=== PATIENT | male | born 1970 | race Caucasian/White ===

== ENCOUNTER 2021-12-05 19:18 | Emergency (ER) | payer BC ==
[2021-12-05] MEDS ORDERED: Heparin Sodium 5,000 Units/ML Vial IVPUSH STA (19:47)
[2021-12-05] MEDS ORDERED: Heparin Sodium/D5W 25,000 UNITS/500 ML BAG IV SCH ×2 (20:00→23:45)
[2021-12-05] MEDS ORDERED: Sodium Chloride 0.9% 1,000 ML IV SCH (20:00)
[2021-12-05] MEDS ORDERED: Iopamidol 755 Mg/ML 100 ML Bottle IVPUSH ONE (20:03)
[2021-12-05] MEDS ORDERED: Sodium Chloride 0.9% 100 ML IV SCH (20:15)
[2021-12-05] MEDS ORDERED: Orphenadrine 100 MG Tab.ER PO STA (22:07)
[2021-12-05] MEDS ORDERED: Aspirin 81 MG Tab.Chew PO STA (23:41)
[2021-12-06] MEDS ORDERED: Losartan 50 MG Tab PO ONE (02:02)
[2021-12-06] MEDS ORDERED: Albuterol/Ipratropium 3.0-0.5 MG/3 ML Neb Soln NEB ONE (02:14)
[2021-12-06] MEDS ORDERED: Heparin Sodium 5,000 Units/ML Vial IVPUSH ONE (04:55)
[2021-12-06] MEDS ORDERED: Heparin Sodium 5,000 Units/ML Vial IV ONE (05:30)
== END 2021-12-06 06:44 ==
LOC: JD.ED 19:18
DX: I21.4 Non-ST elevation (NSTEMI) myocardial infarction (principal); F17.210 Nicotine dependence, cigarettes, uncomplicated; Z79.899 Other long term (current) drug therapy; Z86.16 Personal history of COVID-19; Z20.822 Contact with and (suspected) exposure to COVID-19
CPT/HCPCS: 36415; 36600; 71045; 71275; 80053; 81001; 82803; 83605; 83880; 84484; 85007; 85027; 85379; 85730; 87040; 87635; 93005; 94640; 96365; 96366; 99285; A9270; J1644; J7030; Q9967; 93010; J7620-GY; U0002